=== PATIENT | female | born 1990 | race African-American/Black ===

== ENCOUNTER 2019-05-21 14:33 | Emergency (ER) | payer MEDICAID ==
[~2019-05-21] VITALS: Ht 167.6 cm; Wt 69.4 kg
[2019-05-21 15:08] VITALS: BP_SYST 130
--- NOTE | 2019-05-21 15:30 | NUR ---
Pt brought by parent, Nader&Ox4, pt presents to ER with L ankle L foot pain after gimnastics, skin pink and warm, cap refill <3.
--- NOTE | 2019-05-21 15:30 | NUR ---
Rhonda Barbosa [employer] examining patient at triage room
--- NOTE | 2019-05-21 15:45 | NUR ---
Called pt x1, no answer
--- NOTE | 2019-05-21 15:50 | NUR ---
Called pt x 2 , no answer
--- NOTE | 2019-05-21 16:05 | NUR ---
Nalini hubbard in ED - 05/22/19 at 1323 by [email or web address] Called pt x3 no answer , leslie
--- NOTE | 2019-05-21 16:05 | NUR ---
Pt eloped from ER
== END 2019-05-21 16:05 | disposition left against medical advice (07) ==
LOC: SED 14:33
DX: S93.402A Sprain of unspecified ligament of left ankle, initial encounter (principal); R03.0 Elevated blood-pressure reading, without diagnosis of hypertension; X50.1XXA Overexertion from prolonged static or awkward postures, initial encounter; Y93.43 Activity, gymnastics; Y92.89 Other specified places as the place of occurrence of the external cause; Y99.8 Other external cause status
CPT/HCPCS: 99283

== ENCOUNTER 2019-05-22 10:20 | Emergency (ER) | payer MEDICAID ==
[~2019-05-22] VITALS: Ht 167.6 cm; Wt 69.4 kg
[2019-05-22 10:29] VITALS: BP_SYST 135
--- NOTE | 2019-05-22 10:29 | NUR ---
Patient to ER bed 8 to gown for evaluation. Side rails up.
--- NOTE | 2019-05-22 10:30 | NUR ---
Patient presented to ER with C/O left ankle pain. Patient A&Ox4, afebrile, arrived to ER with crutches, pain 01/03, denies N/V/D, pedal pulses present. Patient states she was doing back flips on Tuesday when she injured left ankle. Patient checked in to [facility] ER yesterday but was unable to tolerate wait, x-ray completed 05/21/19. Patient states she has hx of back surgery.
--- NOTE | 2019-05-22 10:32 | NUR ---
IRIS Barbosa at bedside examining patient.
[2019-05-22 10:50] VITALS: BP_SYST 135
--- NOTE | 2019-05-22 10:50 | NUR ---
Patient given written and verbal discharge instructions and verbalizes understanding. ER MD discussed with patient the results and treatment provided. Patient in stable condition. ID arm band removed. No Rx given. Patient educated on pain management and to follow up with PMD. Pain Scale7/10 tolerable for patient . Opportunity for questions provided and answered.
== END 2019-05-22 10:50 | disposition home or self-care (01) ==
LOC: SED 10:20
DX: S93.402A Sprain of unspecified ligament of left ankle, initial encounter (principal); Y93.43 Activity, gymnastics; Y93.89 Activity, other specified; Y92.89 Other specified places as the place of occurrence of the external cause; Y99.8 Other external cause status
CPT/HCPCS: 99283